=== PATIENT | female | born 1950 | race Caucasian/White ===

== ENCOUNTER 2023-05-02 11:22 | Emergency (ER) | payer OTHER ==
[~2023-05-02] VITALS: Ht 167.6 cm; Wt 89.8 kg
[2023-05-02] MEDS ORDERED: LEVO-T50 MCG PO (11:52)
[2023-05-02] MEDS ORDERED: METFORMIN HCL1000 M2 PO (11:52)
[2023-05-02] MEDS ORDERED: TENORMIN50 M1 PO (11:53)
[2023-05-02] MEDS ORDERED: ATORVASTATIN CA20 MG PO (11:54)
[2023-05-02] MEDS ORDERED: ZESTRIL40 M1 PO (11:54)
== END 2023-05-02 17:22 | disposition home or self-care (01) ==
LOC: ER 11:22
DX: S93.492A Sprain of other ligament of left ankle, initial encounter (principal); X50.9XXA Other and unspecified overexertion or strenuous movements or postures, initial encounter; Y93.89 Activity, other specified; Y92.018 Other place in single-family (private) house as the place of occurrence of the external cause; M77.32 Calcaneal spur, left foot
CPT/HCPCS: 73560; 73610; 73630; 96372; 99284; J1885